=== PATIENT | female | born 2000 | race Caucasian/White ===

== ENCOUNTER 2023-12-31 20:27 | Emergency (ER) | payer OTHER ==
[2023-12-31 20:44] VITALS: BP 106/58; PULSE 90; RESP 20; TEMP 98; BMI 35.9
[2023-12-31] MEDS ORDERED: ACETAMINOPHEN 500 MG TABLET (FP) ONE (22:10)
[2023-12-31] MEDS: ACETAMINOPHEN 500 MG TABLET (FP) PO ONE (22:10)
[2023-12-31 22:24] LABS: BASO % 0.5 % (0-2.0); EOS % 1.1 % (0-4.5); HEMATOCRIT 39.3 % (32.4-45.2); HEMOGLOBIN 13.1 GM/dL (10.7-15.3); LYMPH % 19.2 % (8-40); MCH 28.3 pg (25.7-33.7); MCHC 33.3 g/dl (32.0-36.0); MEAN CELL VOLUME 84.9 fl (80-96); MONO % 6.6 % (3.8-10.2); NEUT % 72.6 % (42.8-82.8); PLATELET COUNT 214 10^3/uL (134-434); RBC 4.63 M/mm3 (3.60-5.2); RDW 13.9 % (11.6-15.6)
[2023-12-31 22:34] LABS: INR 1.04 (0.83-1.09); PROTHROMBIN TIME (PATIENT) 11.9 SEC (9.7-13.0)
[2023-12-31 23:04] LABS: POTASSIUM 4.1 mmol/L (3.5-5.1)
[2023-12-31 23:06] LABS: CALCIUM 8.8 mg/dL (8.5-10.1)
[2023-12-31 23:07] LABS: ALBUMIN 3.7 g/dl (3.4-5.0); BLOOD UREA NITROGEN 13.1 mg/dL (7-18)
[2023-12-31 23:10] LABS: CREATININE 0.8 mg/dL (0.55-1.3)
[2023-12-31 23:11] LABS: BILIRUBIN,TOTAL 0.2 mg/dL (0.2-1); TOT PROT 7.5 g/dl (6.4-8.2)
== END 2023-12-31 23:39 | disposition home or self-care (01) ==
LOC: JER 20:27
DX: R07.81 Pleurodynia (principal); M94.0 Chondrocostal junction syndrome [Tietze]
CPT/HCPCS: 36415; 71046-TC-FY; 80053; 84703; 85025; 85379; 85610; 85730; 93005; 93010; 99285-25

== ENCOUNTER 2024-02-29 22:26 | Emergency (ER) | payer OTHER ==
[2024-02-29 22:40] VITALS: BP 96/68; PULSE 76; RESP 18; TEMP 98.5; BMI 36.4
[2024-02-29] MEDS ORDERED: ACETAMINOPHEN 325 MG TABLET (FP) ONE (23:48)
[2024-02-29] MEDS: ACETAMINOPHEN 325 MG TABLET (FP) PO ONE (23:55)
[2024-03-01] MEDS ORDERED: KETOROLAC TROMETHAMINE 30 MG/1 ML VIAL ONE (00:29)
[2024-03-01] MEDS: KETOROLAC TROMETHAMINE 30 MG/1 ML VIAL IM ONE (00:33)
== END 2024-03-01 02:36 | disposition home or self-care (01) ==
LOC: JER 22:26
PROC: 3E0233Z Introduction of Anti-inflammatory into Muscle, Percutaneous Approach (ICD-10-PCS; principal; 2024-03-01)
DX: M79.662 Pain in left lower leg (principal); M25.552 Pain in left hip; M25.562 Pain in left knee; X50.0XXA Overexertion from strenuous movement or load, initial encounter
CPT/HCPCS: 73502-TC-LT-FY; 73552-TC-LT-FY; 73562-TC-LT-FY; 84703; 99284-25

== ENCOUNTER 2024-12-15 20:50 | Emergency (ER) | payer OTHER ==
[2024-12-15 20:59] VITALS: BMI 34.0
[2024-12-15] MEDS ORDERED: ACETAMINOPHEN INJECTION 100 ML ONE (21:47)
[2024-12-15] MEDS: ACETAMINOPHEN 1000 MG/100 ML BAG IVPB ONE (22:21)
[2024-12-15 22:38] LABS: ABSOLUTE IMMATURE GRANULOCYTES 0.04 x10^3/uL (0.0-0.031); BASOPHILS # 0.03 x10^3/uL (0.01-0.08); EOSINOPHILS # 0.09 x10^3/uL (0.04-0.36); HCG,QUALITATIVE URINE Positive; HEMATOCRIT 37.3 % (34.1-44.9); HEMOGLOBIN 11.9 g/dL (11.2-15.7); MCHC 31.9 g/dl (32.2-35.5); MEAN CELL VOLUME 87.4 fl (79.4-94.8); MEAN PLT VOLUME 10.8 fl (9.4-12.3); MONOCYTE # 0.78 x10^3/uL (0.24-0.86); MONOCYTE % 8.5 % (4.7-12.5); PLATELET COUNT 200 x10^3/uL (182-369); RDW 13.2 % (12.1-16.5)
[2024-12-15 22:42] LABS: EPI CELLS 36 /uL (0-25.1); HYALINE CASTS 1 /uL (0-3.1); URINE APPEARANCE CLEAR; URINE BACTERIA 457 /uL (0-1359); URINE BILIRUBIN NEGATIVE (NEGATIVE); URINE COLOR YELLOW; URINE GLUCOSE (UA) NEGATIVE (NEGATIVE); URINE KETONE TRACE (NEGATIVE); URINE LEUK ESTERASE NEGATIVE (NEGATIVE); URINE NITRITE NEGATIVE (NEGATIVE); URINE PROTEIN NEGATIVE (NEGATIVE); URINE RBC 27 /uL (0-23.9); URINE WBC 10 /uL (0-25.8)
[2024-12-15] MEDS: SODIUM CHLORIDE 0.9% 500 ML INFUS.BAG IV ONE (23:11)
[2024-12-16 00:04] LABS: CALCIUM 9.2 mg/dL (8.5-10.1)
[2024-12-16 00:05] LABS: ALBUMIN 3.5 g/dl (3.4-5.0); BLOOD UREA NITROGEN 18.6 mg/dL (7-18)
[2024-12-16 00:08] LABS: CREATININE 0.6 mg/dL (0.55-1.3)
[2024-12-16 00:10] LABS: BILIRUBIN,TOTAL 0.1 mg/dL (0.2-1)
[2024-12-16 00:20] VITALS: BP 116/61; PULSE 72; RESP 19; TEMP 97.8
== END 2024-12-16 00:20 | disposition home or self-care (01) ==
LOC: JER 20:50
PROC: 3E033NZ Introduction of Analgesics, Hypnotics, Sedatives into Peripheral Vein, Percutaneous Approach (ICD-10-PCS; principal; 2024-12-15)
DX: O20.9 Hemorrhage in early pregnancy, unspecified (principal); O26.899 Other specified pregnancy related conditions, unspecified trimester; R10.9 Unspecified abdominal pain; Z3A.01 Less than 8 weeks gestation of pregnancy
CPT/HCPCS: 36415; 76817-TC; 80053; 81003; 84702; 84703; 85025; 86850; 86900; 86901; 99285-25; J0131

== ENCOUNTER 2024-12-21 07:21 | Emergency (ER) | payer OTHER ==
[2024-12-21 07:31] VITALS: BMI 39.0
[2024-12-21 08:42] LABS: PH,URINE 5.5 (5.0-8.0); URINE APPEARANCE CLEAR; URINE BILIRUBIN NEGATIVE (NEGATIVE); URINE COLOR YELLOW; URINE GLUCOSE (UA) NEGATIVE (NEGATIVE); URINE KETONE NEGATIVE (NEGATIVE); URINE LEUK ESTERASE NEGATIVE (NEGATIVE); URINE NITRITE NEGATIVE (NEGATIVE); URINE PROTEIN NEGATIVE (NEGATIVE); URINE UROBILINOGEN 0.2 mg/dL (0.2-1.0)
[2024-12-21 08:53] LABS: POTASSIUM 3.9 mmol/L (3.5-5.1)
[2024-12-21 08:57] LABS: ALBUMIN 3.5 g/dl (3.4-5.0); CALCIUM 9.1 mg/dL (8.5-10.1)
[2024-12-21 09:00] LABS: HCG,QUALITATIVE URINE Positive
[2024-12-21 09:00] LABS: CREATININE 0.6 mg/dL (0.55-1.3)
[2024-12-21 09:01] LABS: BILIRUBIN,TOTAL 0.4 mg/dL (0.2-1); TOT PROT 7.1 g/dl (6.4-8.2)
[2024-12-21 09:10] LABS: ABSOLUTE IMMATURE GRANULOCYTES 0.03 x10^3/uL (0.0-0.031); BASOPHILS # 0.03 x10^3/uL (0.01-0.08); EOSINOPHIL % 1.1 % (0.7-5.8); EOSINOPHILS # 0.07 x10^3/uL (0.04-0.36); HEMOGLOBIN 12.2 g/dL (11.2-15.7); MEAN CELL VOLUME 85.3 fl (79.4-94.8); MEAN PLT VOLUME 10.7 fl (9.4-12.3); MONOCYTE # 0.45 x10^3/uL (0.24-0.86); PLATELET COUNT 221 x10^3/uL (182-369)
[2024-12-21 11:13] VITALS: BP 104/63; PULSE 71; RESP 19; TEMP 98.1
[2024-12-21 12:48] LABS: HCV DIAGNOSTIC IN-HOUSE W/RFLX NON-REACTIVE (NONREACTIVE)
[2024-12-21 12:49] LABS: HIV INTERPRETATION NEGATIVE (NEGATIVE)
== END 2024-12-21 11:52 | disposition home or self-care (01) ==
LOC: JER 07:21
DX: O36.4XX0 Maternal care for intrauterine death, not applicable or unspecified (principal)
CPT/HCPCS: 36415; 76817-TC; 80053; 81003; 84702; 84703; 85025; 86803; 87086; 87389; 99284-25